=== PATIENT | female | born 1960 | race Caucasian/White ===

== ENCOUNTER 2019-12-05 12:06 | Inpatient (IN) ==
[2019-11-28 12:13] LABS: Appearance,Urine HAZY; Bacteria,Urine 0 /hpf (0); Bilirubin,Urine NEG (NEG); Color,Urine YELLOW; Culture Indicated,Urine NO; Glucose,Urine (UA) NEGATIVE (NEG); Ketones,Urine NEG (NEG); Leukocyte Esterase,Urine 250 /uL (NEG); Mucus,Urine MOD /hpf (0); Nitrate,Urine NEG (NEG); Protein,Urine 30 mg/dL (NEG); Specific Gravity,Urine 1.019 (1.000-1.035); Urine Blood NEG mg/dL (<0.03); Urine Hyaline Cast 172 /lpf (0-2); Urine RBC 2 /hpf (0-1); Urine Squamous Epithelial Cell 7 /hpf (0-4); Urine Transitional Epi Cells 2 /hpf (0-2); Urine WBC 21 /hpf (0-4); Urobilinogen,Urine NEG (NEG)
[2019-11-28 12:38] LABS: Basophils # (Auto) 0 K/mcL (0.0-0.3); Basophils % (Auto) 0.4 % (0.0-2.0); Eosinophils # (Auto) 0.3 K/mcL (0.0-0.7); Eosinophils % (Auto) 4.7 % (0.0-7.0); Hematocrit 42.4 % (36.0-48.0); Hemoglobin 13.9 g/dL (12.0-15.0); Lymphocytes # (Auto) 1.4 K/mcL (1.5-4.8); Lymphocytes % (Auto) 21.2 % (15.5-49.0); Mean Cell Volume 93.7 fL (80.0-100.0); Mean Corpuscular HGB Conc 32.9 g/dL (31.0-36.0); Mean Platelet Volume 7.7 fL (7.4-10.4); Monocytes # (Auto) 0.4 K/mcL (0.1-0.9); Monocytes % (Auto) 6.7 % (1.0-12.0); Platelet Count 224 K/mcL (140-440); RBC 4.52 M/mcL (4.00-5.20); Red Cell Distribution Width 14.3 % (11.5-14.5); WBC 6.5 K/mcL (4.5-11.0)
[2019-11-28 12:41] LABS: Blood Urea Nitrogen 16 mg/dl (8-23); Calcium 9.4 mg/dl (8.6-10.4); Carbon Dioxide 27 mmol/L (22-30); Chloride 98 mmol/L (96-108); Glomerular Filtration Rate 61; Glucose 106 mg/dL (70-105)
[~2019-12-05 12:06] MED LIST: 0.9 % SODIUM CHLORIDE 9 ML, KETOROLAC 30 MG, ROPIVACAINE HCL/PF 49.5 ML, EPINEPHrine 0.... IJ SCH; ACETAMINOPHEN 500 MG TABLET PO SCH; CELECOXIB 200 MG CAPSULE PO SCH; IPRATROPIUM/ALBUTEROL 3 ML AMPUL.NEB NEB PRN; PREGABALIN 75 MG CAPSULE PO SCH; SCOPOLAMINE 1 PATCH PATCH TOPICAL PRN; ceFAZolin 3 GM in DEXTROSE 5% IN WATER 50 ML IV SCH; oxyCODONE 10 MG TAB.ER.12H PO SCH
[2019-12-05] MEDS ORDERED: GENTAMICIN SULFATE 800 MG/20 ML VIAL IR ONE (14:35)
[2019-12-05] MEDS ORDERED: LIDOCAINE HCL/PF 100 MG/5 ML SYRINGE IV ONE (15:52)
[2019-12-05] MEDS ORDERED: DEXAMETHASONE 10 MG/ML VIAL IV ONE (15:52)
[2019-12-05] MEDS ORDERED: KETAMINE 100 MG/ML ML IV ONE (15:52)
[2019-12-05] MEDS ORDERED: ONDANSETRON 4 MG/2 ML VIAL IV ONE (15:52)
[2019-12-05] MEDS ORDERED: MIDAZOLAM 2 MG/2 ML VIAL IV ONE (15:52)
[2019-12-05] MEDS ORDERED: PROPOFOL 200 MG/20 ML VIAL IV ONE (15:52)
[2019-12-05] MEDS ORDERED: PHENYLEPHRINE 10 MG/ML VIAL IV ONE (15:52)
[2019-12-05] MEDS ORDERED: GLYCOPYRROLATE 0.2 MG/ML VIAL IV ONE (15:52)
[2019-12-05] MEDS ORDERED: TRANEXAMIC ACID 1,000 MG/10 ML VIAL IV ONE ×2 (15:52→17:24)
[2019-12-05] MEDS ORDERED: ROPIVACAINE HCL/PF 20 ML VIAL IJ ONE (15:52)
--- NOTE | 2019-12-05 16:01 | Discharge Summary ---
Ortho Discharge - TKA - Patient Instructions Diet: Regular Diet Activity: activity as tolerated, weight bearing as tolerated Total Knee Protocol: For Total Knee: Start ROM SHARLENE with stationary bike or rocking chair. Work on gaining full extension of knee. Posterior dislocation precautions provided. Hip abductor strengthening and gait training instructions provided. Apply Cryocuff as instructed. Dressing Care: May shower in 2 days - Follow Up Plan Follow Up Appointments: Nadir Spain PA-C [Physician Drier And Evaporator Operator] - 12/20/19 10:40 am Disposition: Home, Self-Care Prognosis: Good Rehab Potential: Good I certify that the patient requires SNF services: No Overall status at discharge: patient is progressing back to baseline - Orders For Discharge Prescriptions: Docusate Sodium [Colace] 100 mg PO BID #60 cap Transmission Status: Pending to [facility] - [place] Aspirin [Ecotrin] 325 mg PO BID #60 tab.ec Transmission Status: Pending to [facility] 0[facility] - [place] oxyCODONE/APAP [Percocet 5-325 mg] 1 - 2 tab PO Q4-6H PRN #75 tab PRN Reason: Pain Prescription Printed
[2019-12-05] MEDS ORDERED: MEPERIDINE 25 MG/ML SYRINGE IV PRN (17:09)
[2019-12-05] MEDS ORDERED: IPRATROPIUM/ALBUTEROL 3 ML AMPUL.NEB NEB PRN (17:09)
[2019-12-05] MEDS ORDERED: NALOXONE HCL 0.4 MG/ML VIAL IV PRN (17:09)
[2019-12-05] MEDS ORDERED: ONDANSETRON 4 MG/2 ML VIAL IV PRN ×2 (17:09→17:24)
[2019-12-05] MEDS ORDERED: BENZOCAINE/MENTHOL 1 LOZENGE PO PRN ×2 (17:09→17:24)
[2019-12-05] MEDS ORDERED: fentaNYL 100 MCG/2 ML VIAL IV PRN (17:09)
[2019-12-05] MEDS ORDERED: LACTATED RINGERS 250 ML IV PRN (17:09)
[2019-12-05] MEDS ORDERED: PROMETHAZINE 25 MG/ML VIAL IV PRN (17:09)
[2019-12-05] MEDS ORDERED: diphenhydrAMINE 50 MG/ML VIAL IV PRN (17:09)
[2019-12-05] MEDS ORDERED: FLUMAZENIL 0.1 MG/ML ML IV PRN (17:09)
[2019-12-05] MEDS ORDERED: LACTATED RINGERS 1,000 ML IV SCH (17:15)
--- NOTE | 2019-12-05 17:23 | Brief Operative Note ---
Date of procedure: 12/05/19 Pre-op diagnosis: Rigght tka Post-op diagnosis: same Procedure: right tka with modified incision for rash above knee Grafts/Implants: Yes Anesthesia: ZOË Surgeon: Ariel Santizo Box Shook Patcher: Nadir Spain Estimated blood loss (cc): 50 Tourniquet Time (Minutes): 40 Specimens Removed/Pathology: none sent Condition: stable Disposition: PACU
[2019-12-05] MEDS ORDERED: FLEETS ADULT ENEMA PR PRN (17:24)
[2019-12-05] MEDS ORDERED: MAGNESIUM HYDROXIDE 30 ML ORAL.SUSP PO PRN (17:24)
[2019-12-05] MEDS ORDERED: TEMAZEPAM 15 MG CAPSULE PO PRN (17:24)
[2019-12-05] MEDS ORDERED: POLYETHYLENE GLYCOL 3350 17 GM PACKET PO PRN (17:24)
[2019-12-05] MEDS ORDERED: ACETAMINOPHEN 325 MG TABLET PO PRN (17:24)
[2019-12-05] MEDS ORDERED: BISACODYL 10 MG SUPP.RECT PR PRN (17:24)
[2019-12-05] MEDS ORDERED: SECUKINUMAB 150 MG SUB-Q SCH (17:30)
[2019-12-05] MEDS: LACTATED RINGERS 1,000 ML IV SCH (19:44)
[2019-12-05] MEDS: KETOROLAC 15 MG/ML VIAL IV SCH (20:05)
[2019-12-05] MEDS: oxyCODONE/APAP 5/325MG TABLET PO PRN (20:45)
[2019-12-05] MEDS: SERTRALINE 50 MG TABLET PO SCH (21:56)
[2019-12-05] MEDS: LOSARTAN 50 MG TABLET PO SCH (21:56)
[2019-12-05] MEDS: AMITRIPTYLINE 25 MG TABLET PO SCH (21:56)
[2019-12-05] MEDS: DOCUSATE SODIUM 100 MG CAPSULE PO SCH (21:57)
[2019-12-05] MEDS: SIMVASTATIN 20 MG TABLET PO SCH (21:57)
[2019-12-05] MEDS: ASPIRIN 325 MG ENTERIC COATED TABLET PO SCH (21:57)
[2019-12-05] MEDS: HYDROCHLOROTHIAZIDE 25 MG TABLET PO SCH (21:57)
[2019-12-05] MEDS: SENNOSIDES 1 TABLET PO SCH (21:57)
[2019-12-05] MEDS: hydrOXYzine 25 MG TABLET PO SCH (21:57)
[2019-12-05] MEDS: FLUTICASONE HFA 220MCG INHALER INH SCH (21:58)
[2019-12-05] MEDS: 0.9 % SODIUM CHLORIDE 10 ML SYRINGE IV SCH (21:59)
[2019-12-05] MEDS: SALMETEROL XINAFOATE INH SCH (21:59)
[2019-12-06] MEDS: KETOROLAC 15 MG/ML VIAL IV SCH ×5 (00:21→23:58)
[2019-12-06] MEDS: ceFAZolin 1 GM VIAL IV SCH ×2 (00:21→08:41)
[2019-12-06] MEDS: LACTATED RINGERS 1,000 ML IV SCH ×2 (04:33→15:45)
[2019-12-06] MEDS: HYDROmorphone 2 MG/ML VIAL IV PRN ×2 (04:34→23:28)
[2019-12-06] MEDS: oxyCODONE/APAP 5/325MG TABLET PO PRN ×3 (04:53→22:26)
[2019-12-06] MEDS: 0.9 % SODIUM CHLORIDE 10 ML SYRINGE IV SCH ×3 (05:37→21:53)
--- NOTE | 2019-12-06 07:19 | Operative Note ---
DATE OF OPERATION: 12/05/2019 PREOPERATIVE DIAGNOSIS: Right knee degenerative arthritis. POSTOPERATIVE DIAGNOSIS: Right knee degenerative arthritis. PROCEDURE: Right total knee arthroplasty. SURGEON: Ariel Santizo MD SONAR WATCHSTANDER: Nadir Spain PA-C. This provider's expertise and technical skill were required throughout the case. The PA assisted with preoperative coordination, intraoperative retraction, wound closure, dressing and splint application, as well as postoperative documentation and care coordination. ANESTHESIA: General LMA anesthesia. COMPLICATIONS: None. IMPLANTS: ODC components. TOTAL TOURNIQUET TIME: 40 minutes. DESCRIPTION OF PROCEDURE: The patient was brought to the operating room and put to sleep with general LMA anesthesia. Once asleep, the patient had the right knee sterilely prepped and draped in the usual sterile fashion. Once asleep, a timeout was performed confirming the operative site by initials, consent form and x-rays. Preoperative antibiotics and tranexamic acid had been given. We then placed Ioban over the skin. Noting that there was plaque psoriasis above the knee, this incision was modified to avoid this kind of skin. We opened the joint and made a mid vastus approach. We then using ODC alignment guide and made the femoral cut. Chamfer cuts sizing the component to a size 4 tibia was used as a tibial guide and we made the cut at approximately 9 mm. Once this was done, we then removed spurs around the knee and then trialed the components, size 4 tibial baseplate, size 4 femur with a 7 mm poly insert. It seemed to fit the best with a cruciate-sparing design. The patella was then resurfaced measuring approximately 22 mm. This was taken to 13 mm because of the severe wear. We then placed a 35 mm patellar button to restore thickness. All the components above were cemented into place. Tourniquet was deflated and all excess cement removed. We irrigated thoroughly. We then closed the mid vastus approach with #1 Stratafix x2, closed the skin with Stratafix and chris. There were no complications. RBH:michael Job ID: [id number] Doc ID: [id number] Ariel Santizo MD
[2019-12-06] MEDS: OMEPRAZOLE 20 MG CAPSULE PO SCH ×2 (07:20→17:04)
[2019-12-06] MEDS: LEVOTHYROXINE SODIUM 112 MCG TABLET PO SCH (07:20)
[2019-12-06] MEDS: LEVOTHYROXINE 25 MCG TABLET PO SCH (07:20)
[2019-12-06] MEDS ORDERED: NON FORMULARY MEDICATION 1 DOSE MISCELL (Levothyroxine Sodium [Synthroid] 137 MCG) PO SCH (07:30)
[2019-12-06] MEDS: ALBUTEROL SULFATE 1 PUFF INHALER INH PRN (07:34)
--- NOTE | 2019-12-06 07:44 | XRay Report ---
HISTORY: Postop left knee arthroplasty FINDINGS: There is a well positioned total knee prosthesis. No fracture is present. There is a pre-existing sagittally oriented screw placed from the anterior midline of the tibia. The screw has become bent since the time of the prior exam done on 12/08/17. There are a few small soft tissue calcifications inferior to the patella. IMPRESSION: Well-positioned left knee prosthesis Interpreted and Authenticated by: Rob Peña 12/06/19
[2019-12-06] MEDS: DOCUSATE SODIUM 100 MG CAPSULE PO SCH ×2 (08:25→21:53)
[2019-12-06] MEDS: FAMOTIDINE 20 MG TABLET PO SCH (08:25)
[2019-12-06] MEDS: MULTIVIT,THER IRON,CA,FA & MIN 1 TABLET PO SCH (08:26)
[2019-12-06] MEDS: ASPIRIN 325 MG ENTERIC COATED TABLET PO SCH ×2 (08:26→21:52)
[2019-12-06] MEDS: SALMETEROL XINAFOATE INH SCH ×2 (09:10→21:53)
[2019-12-06] MEDS: FLUTICASONE HFA 220MCG INHALER INH SCH ×2 (09:10→21:53)
[2019-12-06] MEDS ORDERED: FLU VACC QS2019-20(6MOS UP)/PF 60 MCG/0.5 ML SYRINGE IM ONE (10:00)
--- NOTE | 2019-12-06 10:30 | Internal Medicine Consult Note ---
Medical - CN: [facility] - Data of Consult Consult date: 12/06/19 Requesting physician: Ariel Santizo Primary Care Provider: Kellie Simpson - Consult Narrative Reason for consult: hypoxia History of present illness: Ms. Marvin is a 59 year old F Patient presents to the hospital for elective right total knee arthroplasty. This was done yesterday on the sixth. She has required oxygen since surgery. She was down to 2 and half liters earlier this morning but was de-satting in the high 80s and was subsequent put on 4 L oxygen mask with better results. She does not typically use oxygen at home but does have underlying asthma /possibly copd. She does not feel short of breath although when she got up she felt weak and lightheaded and her oxygen saturations been low here. Denies chest pain She does have a chronic cough but states her current cough is little bit different but at a hard time describing how it is different. Review of Systems: Pertinent positives as above. Denies headache/fever/chill s/nausea/vomiting/chest or abdominal pain/diarrhea. Remaining 10 point review of system reviewed negative CC: Ariel Santizo Medical - CN: [facility] Medical history: Medical History (Last Reviewed 10/31/19 @ 15:53 by Osmin Ball MD) Osteoarthritis (Acute) Polyarthralgia (Acute) Encounter for long-term (current) use of high-risk medication (Acute) Psoriasis vulgaris (Chronic) Psoriatic arthritis (Acute) Hypoglycemia (Chronic) Ankle fracture (Chronic) Hypertension (Chronic) Psoriasis (Acute) Psoriatic arthropathy (Acute) Chronic pain syndrome (Chronic) GERD (gastroesophageal reflux disease) (Chronic) Depression (Chronic) Asthma (Chronic) Cough (Chronic) Chronic low back pain (Acute) Abnormal laboratory test result (Chronic) Past Surgical History (Last Reviewed 10/31/19 @ 15:53 by Osmin Ball MD) History of carpal tunnel release of both wrists (Chronic) History of cataract surgery (Chronic) History of cholecystectomy (Chronic) History of hysterectomy (Chronic) History of knee surgery (Chronic) History of tonsillectomy (Chronic) Family History (Last Reviewed 10/31/19 @ 15:53 by Osmin Ball MD) Other No pertinent family history Social History (Last Updated 10/31/19 @ 16:01 by Osmin Ball MD) Quit smoking 12 years ago past 13-[id number]-jpnr smoking history Drink alcohol rarely Ambulates with a walker Is at home with family Medical - CN: Meds Home Medications Medication Instructions Recorded Confirmed Type albuterol sulfate 90 mcg/actuation 1 puff INHALATION Q4HP PRN g 12/31/15 12/05/19 History aerosol inhaler amitriptyline 25 mg tablet 25 mg PO HS 12/31/15 12/05/19 History hydroxyzine pamoate 25 mg capsule 25 mg PO HS cap 12/31/15 12/05/19 History sertraline 50 mg tablet 150 mg PO HS 12/31/15 12/05/19 History famotidine 40 mg tablet 40 mg PO DAILY tab 10/31/19 12/05/19 History fluticasone propionate 220 2 puff INHALATION BID 10/31/19 12/05/19 History mcg/actuation HFA aerosol inhaler levothyroxine 137 mcg tablet 137 mcg PO ACB tab 10/31/19 12/05/19 History lovastatin 40 mg tablet 40 mg PO HS tab 10/31/19 12/05/19 History salmeterol 50 mcg/dose blister 1 puff INHALATION BID 10/31/19 12/05/19 History powder for inhalation secukinumab 150 mg/mL subcutaneous 150 mg SUB-Q .COMPLEX #2 ml 10/31/19 12/05/19 Rx pen injector Multivit,Ther Iron,Ca,FA & Min 1 tab PO DAILY 11/28/19 12/05/19 History [Multivitamin W/Minerals] Omeprazole 20 mg PO BIDAC 11/28/19 12/05/19 History Valsartan/Hydrochlorothiazide 1 tab PO HS 11/28/19 12/05/19 History [Valsartan-Hctz 160-12.5 mg Tab] Aspirin [Ecotrin] 325 mg PO BID #60 tab.ec 12/05/19 Rx Docusate Sodium [Colace] 100 mg PO BID #60 cap 12/05/19 Rx oxyCODONE/APAP [Percocet 5-325 mg] 1 - 2 tab PO Q4-6H PRN #75 tab 12/05/19 Rx Allergies Allergy/AdvReac Type Severity Reaction Status Date / Time No Known Drug Allergies Allergy Verified 10/31/19 15:35 Medical - CN: Exam - Constitutional Vitals: Temp Pulse Resp BP Pulse Ox 96.8 F L 88 20 95/64 88 L 12/06/19 07:18 12/06/19 07:18 12/06/19 07:18 12/06/19 07:18 12/06/19 08:10 Exam: General: Alert, Awake, No acute Distress, obese Eyes/N/T: EOMI, PERRL, Head/Neck: neck supple, normocephalic atraumatic CV: RRR, No murmurs, normal s1/s2 Pulm: diminished base b/l, mild rales b/l Abd: soft, nontender, +BS x4 Ext: no clubbing/cyanosis, trace b/l LE edema Neuro: Alert, no focal deficits, moves all extremities, CN 2-12 grossly intact, symmetrical strength b/l upper/lower, sensations intact b/l upper/lower Skin: warm/dry Medical - CN: Result - Labs CBC & Chem 7: 12/06/19 06:10 11/28/19 10:06 Labs: Short CBC 12/06/19 Range/Units 06:10 Hct 39.5 (34.1-44.9) % Medical - CN: A/P - Narrative A/P Narrative: A: *Hypoxia since surgery: appears to be volume overload *h/o Asthma/?COPD (not on home O2): *Obesity: *Hypothyroidism: *HTN/HLD: *Depression: *GERD: *Chronic low back pain: *Psoriasis: * P: -cxr, abg pending -prn nebs -IS/Acapella -wean o2 support -IV lasix -cont home meds -ppx: post-op per ortho
[2019-12-06] MEDS ORDERED: FUROSEMIDE 40 MG/4 ML VIAL IV ONE (10:52)
--- NOTE | 2019-12-06 11:04 | XRay Report ---
HISTORY: Hypoxia and status post knee surgery yesterday FINDINGS: The lungs are clear and well expanded. The heart size mediastinum, soumya and pleura are normal. There has been no significant change since 12/08/17. IMPRESSION: Normal exam Interpreted and Authenticated by: Rob Peña 12/06/19
[2019-12-06] MEDS ORDERED: ALBUMIN HUMAN 12.5 GM/50 ML BAG IV ONE (11:26)
[2019-12-06] MEDS: IPRATROPIUM/ALBUTEROL 3 ML AMPUL.NEB NEB PRN ×2 (11:38→15:51)
[2019-12-06] MEDS ORDERED: methylPREDNISolone SOD SUCC 125 MG/2 ML VIAL IV ONE (15:58)
[2019-12-06] MEDS: SENNOSIDES 1 TABLET PO SCH (21:52)
[2019-12-06] MEDS: SIMVASTATIN 20 MG TABLET PO SCH (21:52)
[2019-12-06] MEDS: AMITRIPTYLINE 25 MG TABLET PO SCH (21:52)
[2019-12-06] MEDS: SERTRALINE 50 MG TABLET PO SCH (21:52)
[2019-12-06] MEDS: HYDROCHLOROTHIAZIDE 25 MG TABLET PO SCH (21:53)
[2019-12-06] MEDS: hydrOXYzine 25 MG TABLET PO SCH (23:02)
[2019-12-06] MEDS: LOSARTAN 50 MG TABLET PO SCH (23:02)
[2019-12-07] MEDS: oxyCODONE/APAP 5/325MG TABLET PO PRN ×4 (03:48→22:05)
[2019-12-07] MEDS: KETOROLAC 15 MG/ML VIAL IV SCH ×2 (05:27→11:05)
[2019-12-07] MEDS: 0.9 % SODIUM CHLORIDE 10 ML SYRINGE IV SCH ×3 (05:48→22:07)
--- NOTE | 2019-12-07 06:45 | Orthopedic Progress Note ---
Subjective Patient information: Note initiated : 12/07/19 at 6:43 am Service Date, if different from initiated Date: [] Patient: Lynne Marvin 59 y/o F admitted on 12/06/19 for Right Total Knee Arthroplasty . Chief Complaint: sat is low on o2 and is 91 percent[] Objective Vital signs: Vital Signs Temp Pulse Pulse Resp BP BP Pulse Ox 12/07/19 03:35 97.7 F 71 22 115/65 91 12/07/19 01:00 93 12/06/19 23:14 97.8 F 70 20 126/61 94 12/06/19 19:08 98.3 F 74 20 122/67 93 12/06/19 19:00 90 12/06/19 17:00 94 12/06/19 16:00 98.0 F 81 18 100/62 91 12/06/19 15:59 76 18 12/06/19 12:52 90 91/54 94 12/06/19 11:43 76 16 12/06/19 11:39 92 12/06/19 11:19 97.0 F 77 26 H 85/52 95 12/06/19 08:10 88 L 12/06/19 07:18 96.8 F L 88 20 95/64 88 L Intake and Output 12/06/19 12/07/19 12/07/19 21:59 05:59 13:59 Intake Total 1300 300 Output Total 750 2500 Balance 550 -2200 Intake: Oral 1300 300 Output: Void Amount 750 2500 Other: Meal Dinner Percent of Meal Consumed 100% Feeding Ability Independent Urine Appearance Clear Clear Urine Color Pale Pale Urine Odor Normal Normal Weight 278 lb 8 oz Intake & Output: Intake & Output 12/06/19 12/07/19 12/07/19 21:59 05:59 13:59 Intake Total 1300 300 Output Total 750 2500 Balance 550 -2200 Weight 278 lb 8 oz Intake: Oral 1300 300 Output: Void Amount 750 2500 Other: Meal Dinner Percent of Meal Consumed 100% Feeding Ability Independent Urine Appearance Clear Clear Urine Color Pale Pale Urine Odor Normal Normal Incision: Yes healing Incision clean and dry: Yes Dressing: Yes clean Weight bearing status: full Neurological exam IM: Yes oriented X3, Yes neurovascular intact Extremities exam IM: Yes Foot pink and warm, Yes neurovascular intact - Allied Health Allied health notes reviewed: case management - Labs CBC & BMP: 12/06/19 06:10 11/28/19 10:06 Labs: 12/06/19 11/28/19 06:10 10:06 Hgb 13.9 Hct 39.5 42.4
[2019-12-07] MEDS: LEVOTHYROXINE SODIUM 112 MCG TABLET PO SCH (06:56)
[2019-12-07] MEDS: LEVOTHYROXINE 25 MCG TABLET PO SCH (06:56)
[2019-12-07] MEDS: OMEPRAZOLE 20 MG CAPSULE PO SCH ×2 (06:56→17:27)
--- NOTE | 2019-12-07 07:43 | Internal Med Progress Note ---
Medical - PN: Subj Patient information: Note initiated : 12/07/19 at 7:40 am Service Date, if different from initiated Date: [] Patient: Lynne Marvin a 59 y/o F admitted on 12/06/19 for Right Total Knee Arthroplasty . Chief Complaint: [] Interval history: Ms. Marvin is a 59 year old F Patient presents to the hospital for elective right total knee arthroplasty. This was done yesterday on the sixth. She has required oxygen since surgery. She was down to 2 and half liters earlier this morning but was de-satting in the high 80s and was subsequent put on 4 L oxygen mask with better results. She does not typically use oxygen at home but does have underlying asthma /possibly copd. She does not feel short of breath although when she got up she felt weak and lightheaded and her oxygen saturations been low here. Denies chest pain She does have a chronic cough but states her current cough is little bit differe nt but at a hard time describing how it is different. - Constitutional Vitals: Vital Signs Temp Pulse Resp BP Pulse Ox 97.7 F 71 22 115/65 92 12/07/19 03:35 12/07/19 03:35 12/07/19 03:35 12/07/19 03:35 12/07/19 07:03 Period Temp Pulse Resp BP Sys/Norman Pulse Ox Last 24 Hr 97.0 F-98.3 F 70-90 16-26 85-126/52-67 88-95 Intake and Output 12/06/19 12/07/19 12/07/19 21:59 05:59 13:59 Intake Total 1300 300 Output Total 750 2500 Balance 550 -2200 Weight 126.325 kg Intake & Output: Intake & Output 12/06/19 12/07/19 12/07/19 21:59 05:59 13:59 Intake Total 1300 300 Output Total 750 2500 Balance 550 -2200 Weight 126.325 kg Intake: Oral 1300 300 Output: Void Amount 750 2500 Other: Meal Dinner Percent of Meal Consumed 100% Feeding Ability Independent Urine Appearance Clear Clear Urine Color Pale Pale Urine Odor Normal Normal Exam: General: Alert, Awake, No acute Distress, obese Eyes/N/T: EOMI, , Head/Neck: neck supple, CV: RRR, No murmurs, Pulm: diminished base b/l, mild rales b/l Abd: soft, nontender, +BS x4 Ext: no clubbing/cyanosis, trace b/l LE edema Neuro: Alert, no focal deficits, moves all extremities, Skin: warm/dry Medical - PN: Obj Da - Labs CBC & Chem 7: 12/06/19 06:10 11/28/19 10:06 Meds: Medications Acetaminophen (Tylenol) 650 mg PO Q6HP PRN PRN Reason: PAIN/FEVER > 101 Albuterol Sulfate (Ventolin) 1 puff INH Q4HP PRN PRN Reason: Shortness Of Breath Last Admin: 12/06/19 07:34 Dose: 1 puff Documented by: Albuterol/Ipratropium (Duoneb) 3 ml NEB Q4HP PRN PRN Reason: Shortness Of Breath Last Admin: 12/06/19 15:51 Dose: 3 ml Documented by: Amitriptyline HCl (Elavil) 25 mg PO [facility] Last Admin: 12/06/19 21:52 Dose: 25 mg Documented by: Aspirin (Ecotrin) 325 mg PO BID [facility] Last Admin: 12/06/19 21:52 Dose: 325 mg Documented by: Bisacodyl (Dulcolax) 10 mg CO Q2-3DAYS PRN PRN Reason: Constipation Docusate Sodium (Colace) 100 mg PO BID [facility] Last Admin: 12/06/19 21:53 Dose: 100 mg Documented by: Famotidine (Pepcid) 40 mg PO DAILY [facility] Last Admin: 12/06/19 08:25 Dose: 40 mg Documented by: Fluticasone Propionate (Flovent Hfa 220mcg) 2 puff INH BID [facility] Last Admin: 12/06/19 21:53 Dose: 2 puff Documented by: Hydrochlorothiazide (Oretic) 25 mg PO [facility] Last Admin: 12/06/19 21:53 Dose: 25 mg Documented by: Hydromorphone HCl (Dilaudid) 0 mg IV Q2HP PRN PRN Reason: PAIN LEVEL > 6 Last Admin: 12/06/19 23:28 Dose: 1 mg Documented by: Hydroxyzine HCl (Atarax) 25 mg PO [facility] Last Admin: 12/06/19 23:02 Dose: Not Given Documented by: Iron Carb/Multivit/[place]/Folic Acid (Multivitamin W/Minerals) 1 tab PO DAILY [facility] Last Admin: 12/06/19 08:26 Dose: 1 tab Documented by: Ketorolac Tromethamine (Toradol) 15 mg IV Q6 [facility] Stop: 12/07/19 12:01 Last Admin: 12/07/19 05:27 Dose: 15 mg Documented by: Levothyroxine Sodium (Synthroid) 112 mcg PO [facility] Last Admin: 12/07/19 06:56 Dose: 112 mcg Documented by: Levothyroxine Sodium (Synthroid) 25 mcg PO [facility] Last Admin: 12/07/19 06:56 Dose: 25 mcg Documented by: Losartan Potassium (Cozaar) 100 mg PO [facility] Last Admin: 12/06/19 23:02 Dose: Not Given Documented by: Magnesium Hydroxide (Milk Of Magnesia) 30 ml PO BIDP PRN PRN Reason: Constipation Omeprazole (Prilosec) 20 mg PO BIDAC [facility] Last Admin: 12/07/19 06:56 Dose: 20 mg Documented by: Ondansetron HCl (Zofran) 4 mg IV Q4HP PRN PRN Reason: Nausea And Vomiting Oxycodone/Acetaminophen (Percocet 5-325 Mg) 0 tab PO Q4HP PRN PRN Reason: PAIN LEVEL 3-6 Last Admin: 12/07/19 03:48 Dose: 2 tab Documented by: Salmeterol Xinafoate ([Serevent] Inhaler) 1 dose INH BID [facility] Last Admin: 12/06/19 21:53 Dose: 1 dose Documented by: Polyethylene Glycol (Miralax) 17 gm PO DAILYP PRN PRN Reason: Constipation Senna (Senokot) 2 tab PO [facility] Last Admin: 12/06/19 21:52 Dose: 2 tab Documented by: Sertraline HCl (Zoloft) 150 mg PO [facility] Last Admin: 12/06/19 21:52 Dose: 150 mg Documented by: Simvastatin (Zocor) 20 mg PO [facility] Last Admin: 12/06/19 21:52 Dose: 20 mg Documented by: Sodium Biphosphate/Sodium Phosphate (Fleets Adult) 1 dose CO Q3-4DAYS PRN PRN Reason: Constipation Sodium Chloride (Saline Flush) 10 ml IV Q8 [facility] Last Admin: 12/07/19 05:48 Dose: Not Given Documented by: Temazepam (Restoril) 15 mg PO HSP PRN PRN Reason: Insomnia Throat Lozenges (Cepacol) 1 lozenge PO PRN PRN PRN Reason: Sore Throat Last Admin: 12/05/19 19:43 Dose: 1 lozenge Documented by: Medical - PN: A/P - Time Spent With Patient Total time spent is greater than 50% in coordination of care (as documented) at patient's floor/unit and/or counseling patient: - Narrative A/P Narrative: A: *Hypoxia since surgery: appears to be volume overload *h/o Asthma/?COPD (not on home O2): *Obesity: *Hypothyroidism: *HTN/HLD: *Depression: *GERD: *Chronic low back pain: *Psoriasis: * P: -cxr -prn nebs -IS/Acapella -wean o2 support -IV lasix prn -cont home meds -ppx: post-op per ortho
[2019-12-07] MEDS ORDERED: methylPREDNISolone SOD SUCC 40 MG/ML VIAL IV ONE (08:13)
--- NOTE | 2019-12-07 08:14 | Internal Med Progress Note ---
Medical - PN: Subj Patient information: Note initiated : 12/07/19 at 8:10 am Service Date, if different from initiated Date: [] Patient: Lynne Marvin 59 y/o F admitted on 12/06/19 for Right Total Knee Arthroplasty . Chief Complaint: [] Interval history: Ms. Marvin is a 59 year old F Patient presents to the hospital for elective right total knee arthroplasty. This was done yesterday on the sixth. She has required oxygen since surgery. She was down to 2 and half liters earlier this morning but was de-satting in the high 80s and was subsequent put on 4 L oxygen mask with better results. She does not typically use oxygen at home but does have underlying asthma /possibly copd. She does not feel short of breath although when she got up she felt weak and lightheaded and her oxygen saturations been low here. Denies chest pain She does have a chronic cough but states her current cough is little bit differe nt but at a hard time describing how it is different. 12/07 Sitting up eating breakfast. She is on room air but still feels short of breath at times. Nonproductive cough. Review of Systems: denies headache/fever/chills/nausea/vomiting/chest or abdominal pain/diarrhea. Otherwise see above. - Constitutional Vitals: Vital Signs Temp Pulse Resp BP Pulse Ox 98.0 F 76 22 130/64 96 12/07/19 08:02 12/07/19 08:02 12/07/19 08:02 12/07/19 08:02 12/07/19 08:02 Period Temp Pulse Resp BP Sys/Norman Pulse Ox Last 24 Hr 97.0 F-98.3 F 70-90 16-26 85-130/52-67 90-96 Intake and Output 12/06/19 12/07/19 12/07/19 21:59 05:59 13:59 Intake Total 1300 300 Output Total 750 2500 Balance 550 -2200 Weight 126.325 kg Intake & Output: Intake & Output 12/06/19 12/07/19 12/07/19 21:59 05:59 13:59 Intake Total 1300 300 Output Total 750 2500 Balance 550 -2200 Weight 126.325 kg Intake: Oral 1300 300 Output: Void Amount 750 2500 Other: Meal Dinner Percent of Meal Consumed 100% Feeding Ability Independent Urine Appearance Clear Clear Urine Color Pale Pale Urine Odor Normal Normal Exam: General: Alert, Awake, No acute Distress, obese Eyes/N/T: EOMI, Head/Neck: neck supple, CV: RRR, No murmurs, Pulm: diminished base b/l, mild basilar rales improved Abd: soft, nontender, +BS x4 Ext: no clubbing/cyanosis, trace b/l LE edema Neuro: Alert, no focal deficits, moves all extremities, Skin: warm/dry Medical - PN: Obj Da - Labs CBC & Chem 7: 12/06/19 06:10 11/28/19 10:06 Meds: Medications Acetaminophen (Tylenol) 650 mg PO Q6HP PRN PRN Reason: PAIN/FEVER > 101 Albuterol Sulfate (Ventolin) 1 puff INH Q4HP PRN PRN Reason: Shortness Of Breath Last Admin: 12/06/19 07:34 Dose: 1 puff Documented by: Albuterol/Ipratropium (Duoneb) 3 ml NEB Q4HP PRN PRN Reason: Shortness Of Breath Last Admin: 12/06/19 15:51 Dose: 3 ml Documented by: Amitriptyline HCl (Elavil) 25 mg PO [facility] Last Admin: 12/06/19 21:52 Dose: 25 mg Documented by: Aspirin (Ecotrin) 325 mg PO BID [facility] Last Admin: 12/06/19 21:52 Dose: 325 mg Documented by: Bisacodyl (Dulcolax) 10 mg [place] Q2-3DAYS PRN PRN Reason: Constipation Docusate Sodium (Colace) 100 mg PO BID [facility] Last Admin: 12/06/19 21:53 Dose: 100 mg Documented by: Famotidine (Pepcid) 40 mg PO DAILY [facility] Last Admin: 12/06/19 08:25 Dose: 40 mg Documented by: Fluticasone Propionate (Flovent Hfa 220mcg) 2 puff INH BID [facility] Last Admin: 12/06/19 21:53 Dose: 2 puff Documented by: Hydrochlorothiazide (Oretic) 25 mg PO HS [facility] Last Admin: 12/06/19 21:53 Dose: 25 mg Documented by: Hydromorphone HCl (Dilaudid) 0 mg IV Q2HP PRN PRN Reason: PAIN LEVEL > 6 Last Admin: 12/06/19 23:28 Dose: 1 mg Documented by: Hydroxyzine HCl (Atarax) 25 mg PO [facility] Last Admin: 12/06/19 23:02 Dose: Not Given Documented by: Iron Carb/Multivit/[place]/Folic Acid (Multivitamin W/Minerals) 1 tab PO DAILY [facility] Last Admin: 12/06/19 08:26 Dose: 1 tab Documented by: Ketorolac Tromethamine (Toradol) 15 mg IV Q6 [facility] Stop: 12/07/19 12:01 Last Admin: 12/07/19 05:27 Dose: 15 mg Documented by: Levothyroxine Sodium (Synthroid) 112 mcg PO [facility] Last Admin: 12/07/19 06:56 Dose: 112 mcg Documented by: Levothyroxine Sodium (Synthroid) 25 mcg PO [facility] Last Admin: 12/07/19 06:56 Dose: 25 mcg Documented by: Losartan Potassium (Cozaar) 100 mg PO [facility] Last Admin: 12/06/19 23:02 Dose: Not Given Documented by: Magnesium Hydroxide (Milk Of Magnesia) 30 ml PO BIDP PRN PRN Reason: Constipation Omeprazole (Prilosec) 20 mg PO BIDAC [facility] Last Admin: 12/07/19 06:56 Dose: 20 mg Documented by: Ondansetron HCl (Zofran) 4 mg IV Q4HP PRN PRN Reason: Nausea And Vomiting Oxycodone/Acetaminophen (Percocet 5-325 Mg) 0 tab PO Q4HP PRN PRN Reason: PAIN LEVEL 3-6 Last Admin: 12/07/19 03:48 Dose: 2 tab Documented by: Salmeterol Xinafoate ([Serevent] Inhaler) 1 dose INH BID [facility] Last Admin: 12/06/19 21:53 Dose: 1 dose Documented by: Polyethylene Glycol (Miralax) 17 gm PO DAILYP PRN PRN Reason: Constipation Senna (Senokot) 2 tab PO [facility] Last Admin: 12/06/19 21:52 Dose: 2 tab Documented by: Sertraline HCl (Zoloft) 150 mg PO [facility] Last Admin: 12/06/19 21:52 Dose: 150 mg Documented by: Simvastatin (Zocor) 20 mg PO [facility] Last Admin: 12/06/19 21:52 Dose: 20 mg Documented by: Sodium Biphosphate/Sodium Phosphate (Fleets Adult) 1 dose [place] Q3-4DAYS PRN PRN Reason: Constipation Sodium Chloride (Saline Flush) 10 ml IV Q8 [facility] Last Admin: 12/07/19 05:48 Dose: Not Given Documented by: Temazepam (Restoril) 15 mg PO [facility] PRN PRN Reason: Insomnia Throat Lozenges (Cepacol) 1 lozenge PO PRN PRN PRN Reason: Sore Throat Last Admin: 12/05/19 19:43 Dose: 1 lozenge Documented by: Medical - PN: A/P - Time Spent With Patient Total time spent is greater than 50% in coordination of care (as documented) at patient's floor/unit and/or counseling patient: - Narrative A/P Narrative: A: *Hypoxia since surgery: appears to be volume overload -on room air this morning, still feels some dyspnea *h/o Asthma/?COPD (not on home O2): *Obesity: *Hypothyroidism: *HTN/HLD: *Depression: *GERD: *Chronic low back pain: *Psoriasis: * P: -cxr -prn nebs, steroids -IS/Acapella -wean o2 support -IV lasix prn -cont home meds -ppx: post-op per ortho
[2019-12-07] MEDS: MULTIVIT,THER IRON,CA,FA & MIN 1 TABLET PO SCH (08:35)
[2019-12-07] MEDS: ASPIRIN 325 MG ENTERIC COATED TABLET PO SCH ×2 (08:35→22:05)
[2019-12-07] MEDS: DOCUSATE SODIUM 100 MG CAPSULE PO SCH ×2 (08:35→22:04)
[2019-12-07] MEDS: FAMOTIDINE 20 MG TABLET PO SCH (08:35)
[2019-12-07] MEDS: FLUTICASONE HFA 220MCG INHALER INH SCH ×2 (08:36→22:07)
[2019-12-07] MEDS: SALMETEROL XINAFOATE INH SCH ×2 (08:36→22:06)
[2019-12-07] MEDS: IPRATROPIUM/ALBUTEROL 3 ML AMPUL.NEB NEB SCH ×3 (09:03→22:44)
--- NOTE | 2019-12-07 09:29 | XRay Report ---
HISTORY: Follow-up pulmonary edema versus congestion after knee surgery FINDINGS: The lungs are clear and normally expanded. There is no evidence of pulmonary edema, pneumonia or atelectasis. Heart size, mediastinum, soumya and pleura are normal. There has been no significant change since 12/06/19. The patient is large. The subcutaneous fat created the appearance of a vague haziness in the lung parenchyma in both lung bases on yesterday's exam. IMPRESSION: Normal exam, without evidence of pulmonary edema or pneumonia Interpreted and Authenticated by: Rob Peña 12/07/19
[2019-12-07] MEDS ORDERED: guaiFENesin 600 MG TAB.SR.12H PO ONE (09:45)
[2019-12-07] MEDS: HYDROmorphone 2 MG/ML VIAL IV PRN (11:05)
[2019-12-07] MEDS ORDERED: IOPAMIDOL 100 ML BOTTLE IV ONE (21:09)
[2019-12-07] MEDS: LOSARTAN 50 MG TABLET PO SCH (22:04)
[2019-12-07] MEDS: SERTRALINE 50 MG TABLET PO SCH (22:04)
[2019-12-07] MEDS: AMITRIPTYLINE 25 MG TABLET PO SCH (22:04)
[2019-12-07] MEDS: guaiFENesin 600 MG TAB.SR.12H PO SCH (22:04)
[2019-12-07] MEDS: HYDROCHLOROTHIAZIDE 25 MG TABLET PO SCH (22:05)
[2019-12-07] MEDS: ALBUTEROL SULFATE 1 PUFF INHALER INH PRN (22:06)
[2019-12-07] MEDS: SENNOSIDES 1 TABLET PO SCH (22:07)
[2019-12-07] MEDS: hydrOXYzine 25 MG TABLET PO SCH (22:08)
[2019-12-07] MEDS: SIMVASTATIN 20 MG TABLET PO SCH (22:10)
[2019-12-08] MEDS: HYDROmorphone 2 MG/ML VIAL IV PRN (00:36)
[2019-12-08] MEDS: IPRATROPIUM/ALBUTEROL 3 ML AMPUL.NEB NEB PRN (00:52)
[2019-12-08] MEDS: oxyCODONE/APAP 5/325MG TABLET PO PRN ×5 (03:34→20:48)
[2019-12-08] MEDS: 0.9 % SODIUM CHLORIDE 10 ML SYRINGE IV SCH ×3 (05:52→20:49)
--- NOTE | 2019-12-08 07:52 | Cat Scan Report ---
History: Acute respiratory failure and hypoxia following right knee arthroplasty TECHNIQUE: Following injection of intravenous contrast, pulmonary arterial phase images were acquired. Sagittal, coronal and axial MIPS images were created. Radiation exposure was limited using dose reduction technology. FINDINGS: There is suboptimal opacification of the small peripheral pulmonary arteries due to the timing of bolus of contrast. No pulmonary emboli are seen. Central pulmonary arteries normal in caliber. The aorta is normal in caliber and there is no dissection. There is a small amount of plaque in the aortic arch. The heart is upper limits of normal in size. There are scattered calcified plaques in the coronary arteries. There is no evidence of pulmonary edema. No pleural or pericardial effusion are present. There are small bands of atelectasis posteriorly in the left lower lobe posteriorly medially in the right lower lobe. There is no evidence of aspiration pneumonia, pulmonary mass or emphysema. No hilar or mediastinal adenopathy are present. There is moderate generalized fatty infiltration of the liver. Advanced degenerative changes are present throughout the thoracic and lower cervical spine. IMPRESSION: No evidence of pulmonary emboli Bands of discoid atelectasis in both lung bases Mild atherosclerotic coronary artery disease Moderate fatty infiltration of the liver Interpreted and Authenticated by: Rob Peña 12/08/19
[2019-12-08] MEDS: IPRATROPIUM/ALBUTEROL 3 ML AMPUL.NEB NEB SCH ×3 (08:41→19:14)
[2019-12-08] MEDS: guaiFENesin 600 MG TAB.SR.12H PO SCH ×2 (09:15→20:46)
[2019-12-08] MEDS: ASPIRIN 325 MG ENTERIC COATED TABLET PO SCH ×2 (09:16→20:46)
[2019-12-08] MEDS: LEVOTHYROXINE 25 MCG TABLET PO SCH (09:16)
[2019-12-08] MEDS: LEVOTHYROXINE SODIUM 112 MCG TABLET PO SCH (09:16)
[2019-12-08] MEDS: OMEPRAZOLE 20 MG CAPSULE PO SCH ×2 (09:16→17:55)
[2019-12-08] MEDS: MULTIVIT,THER IRON,CA,FA & MIN 1 TABLET PO SCH (09:16)
[2019-12-08] MEDS: DOCUSATE SODIUM 100 MG CAPSULE PO SCH ×2 (09:16→20:46)
[2019-12-08] MEDS: ALBUTEROL SULFATE 1 PUFF INHALER INH PRN (09:19)
[2019-12-08] MEDS: SALMETEROL XINAFOATE INH SCH ×2 (09:19→20:47)
[2019-12-08] MEDS: FLUTICASONE HFA 220MCG INHALER INH SCH ×2 (09:20→20:48)
[2019-12-08] MEDS: FAMOTIDINE 20 MG TABLET PO SCH (09:47)
--- NOTE | 2019-12-08 10:32 | Internal Med Progress Note ---
Medical - PN: Subj Patient information: Note initiated : 12/08/19 at 10:30 am Service Date, if different from initiated Date: [] Patient: Lynne Marvin 59 y/o F admitted on 12/06/19 for Right Total Knee Arthroplasty . Chief Complaint: [] Interval history: Ms. Marvin is a 59 year old F Patient presents to the hospital for elective right total knee arthroplasty. This was done yesterday on the sixth. She has required oxygen since surgery. She was down to 2 and half liters earlier this morning but was de-satting in the high 80s and was subsequent put on 4 L oxygen mask with better results. She does not typically use oxygen at home but does have underlying asthma /possibly copd. She does not feel short of breath although when she got up she felt weak and lightheaded and her oxygen saturations been low here. Denies chest pain She does have a chronic cough but states her current cough is little bit different but at a hard time describing how it is different. 12/07 Sitting up eating breakfast. She is on room air but still feels short of breath at times. Nonproductive cough 12/08 She continues to require oxygen Started on prednisone 40 mg and duo nebs every 6 hourly Incentive spirometer CTA of of the chest showed no evidence of pulmonary embolism but showed bilateral atelectasis She was prescribed incentive spirometer Pertinent ROS: Respiratory-continues to require oxygen, denied any chest pain Cardiovascular-no chest pain no palpitation no dizziness Abdominal-no diarrhea no constipation Neuro-no focal neuro deficit Psychiatric no anxiety no depression - Constitutional Vitals: Vital Signs Temp Pulse Resp BP Pulse Ox 97.7 F 84 16 138/76 93 12/08/19 08:00 12/08/19 08:43 12/08/19 08:43 12/08/19 08:00 12/08/19 08:00 Period Temp Pulse Resp BP Sys/Norman Pulse Ox Last 24 Hr 97.7 F-98.4 F 70-90 16-22 121-138/67-84 86-96 Intake and Output 12/07/19 12/08/19 12/08/19 21:59 05:59 13:59 Intake Total 1520 1100 Output Total 1450 1350 700 Balance 70 -250 -700 Weight 290 lb Intake & Output: Intake & Output 12/07/19 12/08/19 12/08/19 21:59 05:59 13:59 Intake Total 1520 1100 Output Total 1450 1350 700 Balance 70 -250 -700 Weight 290 lb Intake: Oral 1520 1100 Output: Void Amount 1450 1350 700 Other: Meal Dinner Nourishment/Supplement Percent of Meal Consumed 100% 100% Feeding Ability Independent Independent Urine Appearance Clear Clear Clear Urine Color Bright Yellow Bright Yellow Bright Yellow Urine Odor Normal Normal Normal Stool Size Moderate Stool Color Brown Stool Consistency Formed # Bowel Movements 1 # of times incontinent of 0 Bowels - Head Head exam: Present: atraumatic, normal inspection - Eye Eye exam: Present: normal appearance. Absent: conjunctival injection, nystagmus, periorbital swelling - Neck Neck exam: Present: normal inspection. Absent: lymphadenopathy, meningismus - Respiratory Respiratory exam: Present: accessory muscle use, decreased breath sounds, wheezes. Absent: respiratory distress - Cardiovascular Cardiovascular exam: Present: normal rate and rhythm. Absent: bradycardia - GI/Abdominal GI/Abdominal exam: Present: normal bowel sounds, soft - Neurological Exam Neurological exam: Present: alert, oriented X3. Absent: motor sensory deficit Medical - PN: Obj Da - Labs CBC & Chem 7: 12/06/19 06:10 11/28/19 10:06 Labs: Abnormal Lab Results 12/07/19 18:41 D-Dimer 1.19 H Meds: Medications Acetaminophen (Tylenol) 650 mg PO Q6HP PRN PRN Reason: PAIN/FEVER > 101 Albuterol Sulfate (Ventolin) 1 puff INH Q4HP PRN PRN Reason: Shortness Of Breath Last Admin: 12/08/19 09:19 Dose: 1 puff Documented by: Albuterol/Ipratropium (Duoneb) 3 ml NEB Q4HP PRN PRN Reason: Shortness Of Breath Last Admin: 12/08/19 00:52 Dose: 3 ml Documented by: Albuterol/Ipratropium (Duoneb) 3 ml NEB Q8H [facility] Last Admin: 12/08/19 08:41 Dose: 3 ml Documented by: Albuterol/Ipratropium (Duoneb) 3 ml NEB Q6HRT [facility] Amitriptyline HCl (Elavil) 25 mg PO HS [facility] Last Admin: 12/07/19 22:04 Dose: 25 mg Documented by: Aspirin (Ecotrin) 325 mg PO BID [facility] Last Admin: 12/08/19 09:16 Dose: 325 mg Documented by: Bisacodyl (Dulcolax) 10 mg [place] Q2-3DAYS PRN PRN Reason: Constipation Docusate Sodium (Colace) 100 mg PO BID [facility] Last Admin: 12/08/19 09:16 Dose: 100 mg Documented by: Famotidine (Pepcid) 40 mg PO DAILY [facility] Last Admin: 12/08/19 09:47 Dose: Not Given Documented by: Fluticasone Propionate (Flovent Hfa 220mcg) 2 puff INH BID [facility] Last Admin: 12/08/19 09:20 Dose: 2 puff Documented by: Guaifenesin (Mucinex) 600 mg PO BID [facility] Stop: 12/09/19 09:01 Last Admin: 12/08/19 09:15 Dose: 600 mg Documented by: Hydrochlorothiazide (Oretic) 25 mg PO [facility] Last Admin: 12/07/19 22:05 Dose: 25 mg Documented by: Hydromorphone HCl (Dilaudid) 0 mg IV Q2HP PRN PRN Reason: PAIN LEVEL > 6 Last Admin: 12/08/19 00:36 Dose: 1 mg Documented by: Hydroxyzine HCl (Atarax) 25 mg PO [facility] Last Admin: 12/07/19 22:08 Dose: 25 mg Documented by: Iron Carb/Multivit/[place]/Folic Acid (Multivitamin W/Minerals) 1 tab PO DAILY [facility] Last Admin: 12/08/19 09:16 Dose: 1 tab Documented by: Levothyroxine Sodium (Synthroid) 112 mcg PO [facility] Last Admin: 12/08/19 09:16 Dose: 112 mcg Documented by: [facility]ine [facility] ([facility]) [facility] Last Admin: 12/08/19 09:16 Dose: 25 mcg Documented by: Losartan Potassium (Cozaar) 100 mg PO [facility] Last Admin: 12/07/19 22:04 Dose: 100 mg Documented by: Magnesium Hydroxide (Milk Of Magnesia) 30 ml PO BIDP PRN PRN Reason: Constipation [facility] Last Admin: 12/08/19 09:16 Dose: 20 mg Documented by: Ondansetron HCl (Zofran) 4 mg IV Q4HP PRN PRN Reason: Nausea And Vomiting Oxycodone/Acetaminophen (Percocet 5-325 Mg) 0 tab PO Q4HP PRN PRN Reason: PAIN LEVEL 3-6 Last Admin: 12/08/19 09:46 Dose: 2 tab Documented by: Salmeterol Xinafoate ([Serevent] Inhaler) 1 dose INH BID [facility] Last Admin: 12/08/19 09:19 Dose: 1 dose Documented by: Polyethylene Glycol (Miralax) 17 gm PO DAILYP PRN PRN Reason: Constipation Prednisone (Prednisone) 40 mg PO [facility] Senna (Senokot) 2 tab PO [facility] Last Admin: 12/07/19 22:07 Dose: 2 tab Documented by: Sertraline HCl (Zoloft) 150 mg PO [facility] Last Admin: 12/07/19 22:04 Dose: 150 mg Documented by: Simvastatin (Zocor) 20 mg PO [facility] Last Admin: 12/07/19 22:10 Dose: 20 mg Documented by: Sodium Biphosphate/Sodium Phosphate (Fleets Adult) 1 dose DC Q3-4DAYS PRN PRN Reason: Constipation Sodium Chloride (Saline Flush) 10 ml IV Q8 [facility] Last Admin: 12/08/19 05:52 Dose: Not Given Documented by: Temazepam (Restoril) 15 mg PO [facility] PRN PRN Reason: Insomnia Throat Lozenges (Cepacol) 1 lozenge PO PRN PRN PRN Reason: Sore Throat Last Admin: 12/05/19 19:43 Dose: 1 lozenge Documented by: Medical - PN: A/P - Time Spent With Patient Total time spent is greater than 50% in coordination of care (as documented) at patient's floor/unit and/or counseling patient: - Narrative A/P Narrative: Acute hypoxic respiratory failure Postoperative Possible atelectasis CT did not show any evidence of pneumonia or PE Showed evidence of bilateral atelectasis Probable underlying COPD Started on duo nebs prednisone and incentive spirometer She still requiring oxygen and recommend monitoring her another day until she improved her respiratory failure Obesity Probable obesity hypoventilation Encourage her to lose weight Hypothyroidism Continue levothyroxine Hypertension hyperlipidemia Continue home medication Lasix continued as needed Right total knee arthroplasty Orthopedic following the patient and discharge per orthopedics
[2019-12-08] MEDS: predniSONE 20 MG TABLET PO SCH (12:00)
[2019-12-08] MEDS: LOSARTAN 50 MG TABLET PO SCH (20:46)
[2019-12-08] MEDS: AMITRIPTYLINE 25 MG TABLET PO SCH (20:46)
[2019-12-08] MEDS: SIMVASTATIN 20 MG TABLET PO SCH (20:46)
[2019-12-08] MEDS: SERTRALINE 50 MG TABLET PO SCH (20:46)
[2019-12-08] MEDS: hydrOXYzine 25 MG TABLET PO SCH (20:46)
[2019-12-08] MEDS: SENNOSIDES 1 TABLET PO SCH (20:46)
[2019-12-08] MEDS: HYDROCHLOROTHIAZIDE 25 MG TABLET PO SCH (20:46)
[2019-12-09] MEDS: oxyCODONE/APAP 5/325MG TABLET PO PRN ×4 (00:51→12:41)
[2019-12-09] MEDS: IPRATROPIUM/ALBUTEROL 3 ML AMPUL.NEB NEB SCH ×2 (00:59→07:31)
[2019-12-09] MEDS: 0.9 % SODIUM CHLORIDE 10 ML SYRINGE IV SCH (05:15)
[2019-12-09] MEDS: DOCUSATE SODIUM 100 MG CAPSULE PO SCH (08:34)
[2019-12-09] MEDS: MULTIVIT,THER IRON,CA,FA & MIN 1 TABLET PO SCH (08:34)
[2019-12-09] MEDS: LEVOTHYROXINE SODIUM 112 MCG TABLET PO SCH (08:34)
[2019-12-09] MEDS: LEVOTHYROXINE 25 MCG TABLET PO SCH (08:34)
[2019-12-09] MEDS: OMEPRAZOLE 20 MG CAPSULE PO SCH (08:34)
[2019-12-09] MEDS: ASPIRIN 325 MG ENTERIC COATED TABLET PO SCH (08:34)
[2019-12-09] MEDS: guaiFENesin 600 MG TAB.SR.12H PO SCH (08:35)
[2019-12-09] MEDS: FAMOTIDINE 20 MG TABLET PO SCH (08:36)
[2019-12-09] MEDS: predniSONE 20 MG TABLET PO SCH (08:52)
--- NOTE | 2019-12-09 09:10 | Internal Med Progress Note ---
Medical - PN: Subj Patient information: Note initiated : 12/09/19 at 9:08 am Service Date, if different from initiated Date: [] Patient: Lynne Marivn 59 y/o F admitted on 12/06/19 for Right Total Knee Arthroplasty . Chief Complaint: [] Interval history: Ms. Marvin is a 59 year old F Patient presents to the hospital for elective right total knee arthroplasty. This was done yesterday on the . She has required oxygen since surgery. She was down to 2 and half liters earlier this morning but was de-satting in the high 80s and was subsequent put on 4 L oxygen mask with better results. She does not typically use oxygen at home but does have underlying asthma /possibly copd. She does not feel short of breath although when she got up she felt weak and lightheaded and her oxygen saturations been low here. Denies chest pain She does have a chronic cough but states her current cough is little bit different but at a hard time describing how it is different. 12/07 Sitting up eating breakfast. She is on room air but still feels short of breath at times. Nonproductive cough 12/08 She continues to require oxygen Started on prednisone 40 mg and duo nebs every 6 hourly Incentive spirometer CTA of of the chest showed no evidence of pulmonary embolism but showed bilateral atelectasis She was prescribed incentive spirometer 12/09 Patient oxygenation improved Respiratory therapy will do walk test and decide whether the patient need oxygen upon discharge Pertinent ROS: Respiratory system-shortness of breath improved still requiring 1 L of oxygen CVS-no chest pain no palpitation Abdomen nontender and no diarrhea no constipation Neuro-no headache no vision change no focal neuro deficit Musculoskeletal-pain improved - Constitutional Vitals: Vital Signs Temp Pulse Resp BP Pulse Ox 98.6 F 74 14 96/50 91 12/09/19 04:00 12/09/19 07:31 12/09/19 07:31 12/09/19 04:00 12/09/19 07:31 Period Temp Pulse Resp BP Sys/Norman Pulse Ox Last 24 Hr 97.1 F-98.6 F 60-90 14-20 96-143/50-82 90-95 Intake and Output 12/08/19 12/09/19 12/09/19 21:59 05:59 13:59 Intake Total 500 Output Total 1000 1550 Balance -1000 -1050 Weight 288 lb 4.8 oz Intake & Output: Intake & Output 12/08/19 12/09/19 12/09/19 21:59 05:59 13:59 Intake Total 500 Output Total 1000 1550 Balance -1000 -1050 Weight 288 lb 4.8 oz Intake: Oral 500 Output: Void Amount 1000 1550 Other: Urine Appearance Clear Urine Color Dark Yellow - Head Head exam: Present: atraumatic, normal inspection, normocephalic - Eye Eye exam: Present: normal appearance. Absent: nystagmus, periorbital swelling, periorbital tenderness - ENT ENT exam: Present: mucous membranes moist, normal exam, normal external ear exam, normal oropharynx - Neck Neck exam: Present: normal inspection. Absent: lymphadenopathy, meningismus - Respiratory Respiratory exam: Present: normal respiratory exam, decreased breath sounds. Absent: accessory muscle use - GI/Abdominal GI/Abdominal exam: Present: normal bowel sounds, soft, distended. Absent: bruit - Neurological Exam Neurological exam: Present: alert, oriented X3. Absent: motor sensory deficit Medical - PN: Obj Da - Labs CBC & Chem 7: 12/06/19 06:10 11/28/19 10:06 Labs: Abnormal Lab Results 12/07/19 18:41 D-Dimer 1.19 H Meds: Medications Acetaminophen (Tylenol) 650 mg PO Q6HP PRN PRN Reason: PAIN/FEVER > 101 Albuterol Sulfate (Ventolin) 1 puff INH Q4HP PRN PRN Reason: Shortness Of Breath Last Admin: 12/08/19 09:19 Dose: 1 puff Documented by: Albuterol/Ipratropium (Duoneb) 3 ml NEB Q4HP PRN PRN Reason: Shortness Of Breath Last Admin: 12/08/19 00:52 Dose: 3 ml Documented by: Albuterol/Ipratropium (Duoneb) 3 ml NEB Q6HRT [facility] Last Admin: 12/09/19 07:31 Dose: 3 ml Documented by: Amitriptyline HCl (Elavil) 25 mg PO HS [facility] Last Admin: 12/08/19 20:46 Dose: 25 mg Documented by: Aspirin (Ecotrin) 325 mg PO BID [facility] Last Admin: 12/09/19 08:34 Dose: 325 mg Documented by: Bisacodyl (Dulcolax) 10 mg MT Q2-3DAYS PRN PRN Reason: Constipation Docusate Sodium (Colace) 100 mg PO BID [facility] Last Admin: 12/09/19 08:34 Dose: 100 mg Documented by: Famotidine (Pepcid) 40 mg PO DAILY [facility] Last Admin: 12/09/19 08:36 Dose: 40 mg Documented by: Fluticasone Propionate (Flovent Hfa 220mcg) 2 puff INH BID [facility] Last Admin: 12/08/19 20:48 Dose: 2 puff Documented by: Hydrochlorothiazide (Oretic) 25 mg PO [facility] Last Admin: 12/08/19 20:46 Dose: 25 mg Documented by: Hydromorphone HCl (Dilaudid) 0 mg IV Q2HP PRN PRN Reason: PAIN LEVEL > 6 Last Admin: 12/08/19 00:36 Dose: 1 mg Documented by: Hydroxyzine HCl (Atarax) 25 mg PO [facility] Last Admin: 12/08/19 20:46 Dose: 25 mg Documented by: Iron Carb/Multivit/Coosa/Folic Acid (Multivitamin W/Minerals) 1 tab PO DAILY [facility] Last Admin: 12/09/19 08:34 Dose: 1 tab Documented by: [facility]) [facility] Last Admin: 12/09/19 08:34 Dose: 112 mcg Documented by: Levothyroxine Sodium (Synthroid) 25 mcg PO QAMAC [facility] Last Admin: 12/09/19 08:34 Dose: 25 mcg Documented by: Losartan Potassium (Cozaar) 100 mg PO [facility] Last Admin: 12/08/19 20:46 Dose: 100 mg Documented by: Magnesium Hydroxide (Milk Of Magnesia) 30 ml PO BIDP PRN PRN Reason: Constipation Omeprazole (Prilosec) 20 mg PO BIDAC [facility] Last Admin: 12/09/19 08:34 Dose: 20 mg Documented by: Ondansetron HCl (Zofran) 4 mg IV Q4HP PRN PRN Reason: Nausea And Vomiting Oxycodone/Acetaminophen (Percocet 5-325 Mg) 0 tab PO Q4HP PRN PRN Reason: PAIN LEVEL 3-6 Last Admin: 12/09/19 08:52 Dose: 2 tab Documented by: Salmeterol Xinafoate ([Serevent] Inhaler) 1 dose INH BID [facility] Last Admin: 12/08/19 20:47 Dose: 1 dose Documented by: Polyethylene Glycol (Miralax) 17 gm PO DAILYP PRN PRN Reason: Constipation Prednisone (Prednisone) 40 mg PO QAC [facility] Last Admin: 12/09/19 08:52 Dose: 40 mg Documented by: Senjohan (Senokot) 2 tab PO [facility] Last Admin: 12/08/19 20:46 Dose: 2 tab Documented by: Sertraline HCl (Zoloft) 150 mg PO [facility] Last Admin: 12/08/19 20:46 Dose: 150 mg Documented by: Simvastatin (Zocor) 20 mg PO [facility] Last Admin: 12/08/19 20:46 Dose: 20 mg Documented by: Sodium Biphosphate/Sodium Phosphate (Fleets Adult) 1 dose MT Q3-4DAYS PRN PRN Reason: Constipation Sodium Chloride (Saline Flush) 10 ml IV Q8 [facility] Last Admin: 12/09/19 05:15 Dose: 10 ml Documented by: Temazepam (Restoril) 15 mg PO HSP PRN PRN Reason: Insomnia Throat Lozenges (Cepacol) 1 lozenge PO PRN PRN PRN Reason: Sore Throat Last Admin: 12/05/19 19:43 Dose: 1 lozenge Documented by: Medical - PN: A/P - Time Spent With Patient Total time spent is greater than 50% in coordination of care (as documented) at patient's floor/unit and/or counseling patient: - Narrative A/P Narrative: Acute hypoxic respiratory failure Postoperative Possible atelectasis CT did not show any evidence of pneumonia or PE Showed evidence of bilateral atelectasis Probable underlying COPD Started on duo nebs prednisone and incentive spirometer Her oxygenation improved and she can be discharged today Ordered prednisone 40 mg daily for 5 days and continue home inhaler and encourage her to use incentive spirometry Obesity Probable obesity hypoventilation Encourage her to lose weight Hypothyroidism Continue levothyroxine Hypertension hyperlipidemia Continue home medication Lasix continued as needed Right total knee arthroplasty Orthopedic following the patient and discharge per orthopedics
[2019-12-09] MEDS: FLUTICASONE HFA 220MCG INHALER INH SCH (12:33)
[2019-12-09] MEDS: SALMETEROL XINAFOATE INH SCH (12:33)
== END 2019-12-09 13:00 | disposition home or self-care (01) | DRG 469 ==
LOC: SUR 12:06 → MEDSUR 12:07 → EDSTATUS 16:30 → MEDSUR 12-06 09:30
PROVIDERS: ADMIT Orthopaedic Surgery; ATTEND Orthopaedic Surgery